=== PATIENT | male | born 2000 | race African-American/Black ===

== ENCOUNTER 2018-03-05 08:32 | Inpatient (IN) | payer OTHER ==
[~2018-03-05] VITALS: Ht 185.4 cm; Wt 93.9 kg
--- NOTE | 2018-03-05 08:46 | ER Report ---
History and Physical Time Seen By MD: 08:46 HPI/ROS 17-year-old otherwise healthy male with a remote history of cna hha asthma presents to the emergency department with cough, chills, and myalgias for the past 2 days. Worsened last night such that he had problems sleeping. He has not taken any medication recently for the symptoms. Complained of night sweats last night. He is a healthy faculty head otherwise. He denies chest pain, abdominal pain, nausea vomiting or diarrhea. No PE risk factors. Denies sick contacts. Remainder of the 14 system rev: Yes Allergies: Uncoded Allergies: PEACHES (Allergy, Severe, HIVES, 03/05/18) Home Meds No Active Prescriptions or Reported Meds Reviewed Nurses Notes: Yes Old Medical Records Reviewed: Yes Hx Smoking: No Exposure to Second Hand Smoke?: No Hx Substance Use Disorder: No Hx Alcohol Use: No Constitutional Vital Sign - Last 24 Hours 03/05/18 03/05/18 03/05/18 03/05/18 08:35 08:37 08:58 08:58 Temp 98.2 Pulse 138 116 Resp 18 18 B/P (MAP) 156/92 (113) 156/92 Pulse Ox 89 88 O2 Delivery Room Air Room Air 03/05/18 03/05/18 03/05/18 03/05/18 09:00 09:02 09:03 09:30 Pulse 119 133 Resp 14 18 B/P (MAP) 135/86 (102) 135/76 (95) Pulse Ox 92 O2 Delivery Room Air 03/05/18 03/05/18 03/05/18 03/05/18 09:32 09:37 10:00 10:07 Pulse 121 116 107 Resp 12 32 17 B/P (MAP) 130/64 (86) Pulse Ox 88 85 93 O2 Delivery Room Air Room Air Nasal Cannula O2 Flow Rate 2 03/05/18 03/05/18 03/05/18 03/05/18 10:30 10:37 11:00 11:07 Pulse 106 116 Resp 28 21 B/P (MAP) 134/85 (101) 128/77 (94) Pulse Ox 93 93 O2 Delivery Nasal Cannula Nasal Cannula O2 Flow Rate 2 2 03/05/18 03/05/18 03/05/18 03/05/18 11:12 11:30 11:42 11:47 Pulse 101 101 102 Resp 22 23 23 B/P (MAP) 118/72 (87) Pulse Ox 94 89 87 O2 Delivery Nasal Cannula Room Air Room Air O2 Flow Rate 2 03/05/18 12:00 B/P (MAP) 132/89 (103) Physical Exam General Appearance: The patient is alert, has no immediate need for airway protection and no current signs of toxicity. Eyes: Pupils equal and round no injection. Respiratory: Chest is non tender, no wheezing but with decreased breath sounds in the left base Cardiac: tachycardic with regular rhythm Gastrointestinal: Abdomen is soft and non tender, no masses, bowel sounds normal. Neck: Neck is supple and non tender. Extremities have full range of motion and are non tender. Skin: No rashes or lesions. DIFFERENTIAL DIAGNOSIS: After history and physical exam differential diagnosis was considered for shortness of breath including but not limited to pulmonary infectious process, COPD, asthma, pulmonary embolus and congestive heart failure. Medical Decision Making Data Points Result Diagram: 03/05/18 0842 03/05/18 0842 Laboratory Hematology Test 03/05/18 08:42 03/05/18 08:52 Red Blood Count 5.58 M/uL (4.00-5.60) Mean Corpuscular Volume 89.7 fL (80.0-96.0) Mean Corpuscular Hemoglobin 31.1 pg (26.0-33.0) Mean Corpuscular Hemoglobin Concent 34.7 g/dL (32.0-36.0) Red Cell Distribution Width 12.4 % (11.5-14.5) Mean Platelet Volume 7.2 fL (7.2-11.1) Neutrophils (%) (Auto) 83.4 % (39.4-72.5) Lymphocytes (%) (Auto) 8.4 % (17.6-49.6) Monocytes (%) (Auto) 8.0 % (4.1-12.4) Eosinophils (%) (Auto) 0.1 % (0.4-6.7) Basophils (%) (Auto) 0.1 % (0.3-1.4) Nucleated RBC Relative Count (auto) 0.1 /100WBC Neutrophils # (Auto) 19.7 K/uL (2.0-7.4) Lymphocytes # (Auto) 2.0 K/uL (1.3-3.6) Monocytes # (Auto) 1.9 K/uL (0.3-1.0) Eosinophils # (Auto) 0.0 K/uL (0.0-0.5) Basophils # (Auto) 0.0 K/uL (0.0-0.1) Nucleated RBC Absolute Count (auto) 0.01 K/uL Peripheral Blood Smear Yes Y/N Sodium Level 137 mmol/L (137-145) Potassium Level 4.1 mmol/L (3.5-5.0) Chloride Level 104 mmol/L (98-107) Carbon Dioxide Level 26 mmol/L (22-30) Blood Urea Nitrogen 12 mg/dl (9-21) Creatinine 1.30 mg/dl (0.66-1.25) Glomerular Filtration Rate Calc > 60.0 Random Glucose 106 mg/dl (75-110) Calcium Level 10.2 mg/dl (8.4-10.2) Total Bilirubin 1.2 mg/dl (0.2-1.3) Aspartate Amino Transf (AST/SGOT) 25 U/L (0-35) Alanine Aminotransferase (ALT/SGPT) 32 U/L (0-56) Alkaline Phosphatase 102 U/L (0-126) Total Protein 9.0 g/dl (6.3-8.2) Albumin 4.6 g/dl (3.5-5.0) Influenza Virus Type A (PCR) Negative (NEGATIVE) Influenza Virus Type B (PCR) Negative (NEGATIVE) Chemistry Test 03/05/18 08:42 03/05/18 08:52 White Blood Count 23.6 k/uL (4.5-11.0) Red Blood Count 5.58 M/uL (4.00-5.60) Hemoglobin 17.4 g/dL (14.0-18.0) Hematocrit 50.1 % (42.0-52.0) Mean Corpuscular Volume 89.7 fL (80.0-96.0) Mean Corpuscular Hemoglobin 31.1 pg (26.0-33.0) Mean Corpuscular Hemoglobin Concent 34.7 g/dL (32.0-36.0) Red Cell Distribution Width 12.4 % (11.5-14.5) Platelet Count 320 K/uL (150-450) Mean Platelet Volume 7.2 fL (7.2-11.1) Neutrophils (%) (Auto) 83.4 % (39.4-72.5) Lymphocytes (%) (Auto) 8.4 % (17.6-49.6) Monocytes (%) (Auto) 8.0 % (4.1-12.4) Eosinophils (%) (Auto) 0.1 % (0.4-6.7) Basophils (%) (Auto) 0.1 % (0.3-1.4) Nucleated RBC Relative Count (auto) 0.1 /100WBC Neutrophils # (Auto) 19.7 K/uL (2.0-7.4) Lymphocytes # (Auto) 2.0 K/uL (1.3-3.6) Monocytes # (Auto) 1.9 K/uL (0.3-1.0) Eosinophils # (Auto) 0.0 K/uL (0.0-0.5) Basophils # (Auto) 0.0 K/uL (0.0-0.1) Nucleated RBC Absolute Count (auto) 0.01 K/uL Peripheral Blood Smear Yes Y/N Glomerular Filtration Rate Calc > 60.0 Calcium Level 10.2 mg/dl (8.4-10.2) Total Bilirubin 1.2 mg/dl (0.2-1.3) Aspartate Amino Transf (AST/SGOT) 25 U/L (0-35) Alanine Aminotransferase (ALT/SGPT) 32 U/L (0-56) Alkaline Phosphatase 102 U/L (0-126) Total Protein 9.0 g/dl (6.3-8.2) Albumin 4.6 g/dl (3.5-5.0) Influenza Virus Type A (PCR) Negative (NEGATIVE) Influenza Virus Type B (PCR) Negative (NEGATIVE) EKG/Imaging EKG Interpretation 12 lead EKG: Rhythm: sinus tachycardia [place]: normal QRS: normal ST segments: normal [ ] Monitor Interpretation: Sinus Tachycardia ED Course/Re-evaluation ED Course Very pleasant 17-year-old male who presents to the emergency department with diaphoresis, cough, chills, and hypoxia. No PE risk factors. No chest pain. Night sweats last night. HR up to 140 initially. AFter 2L of NS, HR in low 100s. Also given a duoneb. CXR c/w left lower lobe pna. Given Rocephin and Azithromycin. Feels somewhat improved after treatment, but still with tachycardia and oxygen requirement. Influenza negative. Will admit for continued IV abx and oxygen support. Decision to Disposition Date: Mar 05, 2018 Decision to Disposition Time: 12:39 Depart Departure Latest Vital Signs Vital Signs Date Time Temp Pulse Resp B/P (MAP) Pulse Ox O2 Delivery O2 Flow Rate FiO2 03/05/18 12:00 132/89 (103) 03/05/18 11:47 102 23 87 Room Air 03/05/18 11:12 2 03/05/18 08:37 98.2 Impression: Primary Impression: Community acquired pneumonia Condition: Improved Disposition: Admitted from ER New Scripts No Active Prescriptions or Reported Meds Problem Qualifiers Primary Impression: Community acquired pneumonia Laterality: left Lung location: lower lobe of lung Qualified Codes: J18.1 - Lobar pneumonia, unspecified organism NICOLA MA MD Mar 05, 2018 08:46
[2018-03-05] MEDS ORDERED: ALBUTEROL/IPRATROPIUM 3 ML NEB NEB ONE (08:50)
[2018-03-05] MEDS ORDERED: NS(*) 0.9% 1000 ML BAG 1,000 ML IV ONE ×3 (08:50→10:00)
[2018-03-05] MEDS ORDERED: KETOROLAC 30 MG/ML VIAL IVP ONE (08:50)
[2018-03-05] MEDS ORDERED: DEXAMETHASONE SOD PHOS 10MG/ML IVP ONE (08:50)
[2018-03-05 09:02] LABS: PLATELET COUNT, AUTOMATED 320 K/uL (150-450)
--- NOTE | 2018-03-05 09:18 | EKG ---
FACILITY: [facility] [place] PATIENT NAME: LLOYD PURCELL : [id number] MR: [id number] V: [id number] EXAM DATE: ORDERING PHYSICIAN: NICOLA MA TECHNOLOGIST: Test Reason : SOB Blood Pressure : / mmHG Vent. Rate : 124 BPM Atrial Rate : 124 BPM P-R Int : 136 ms QRS Dur : 096 ms QT Int : 322 ms P-R-T Axes : 082 090 046 degrees QTc Int : 462 ms Sinus tachycardia Right atrial enlargement Borderline ECG No previous ECGs available Confirmed by SINDY ARREGUIN ([id number]) on 03/05/2018 11:32:43 AM Referred By: Confirmed By:SINDY ARREGUIN
--- NOTE | 2018-03-05 09:45 | RADIOLOGY IMAGING REPORT ---
[place] [facility] [place]IENT NAME: Dhaval Sanchez : 2000 MR: [id number] V: [id number] EXAM DATE: ORDERING PHYSICIAN: NICOLA MA TECHNOLOGIST: Location: [facility] Patient: Dhaval Sanchez : 2000 Visit/Account:[id number] Date of Sevice: 03/05/2018 CHEST PA LAT INDICATION: fever/cough/wheezing COMPARISON: None available FINDINGS: Heart size within normal limits. There is focal infiltrate noted within the posterior aspect of the left lower lobe. There is no pneumothorax or pleural effusion. IMPRESSION: 1. Left lower lobe pneumonia Report Dictated By: Tyrone Miller at 03/05/2018 9:40 AM Report E-Signed By: Tyrone Miller at 03/05/2018 9:41 AM WSN:[id number]
[2018-03-05] MEDS ORDERED: cefTRIAXone 1 GM VIAL IVP ONE (10:00)
[2018-03-05] MEDS ORDERED: AZITHROMYCIN(*) 500 MG 500 MG in NS(*) 0.9% 250 ML BAG 250 ML IVPB ONE (10:00)
[2018-03-05] MEDS ORDERED: NS(*) 0.9% 1000 ML BAG 1,000 ML IV PRN (13:27)
[2018-03-05] MEDS ORDERED: ALBUTEROL 8 GM INHALER INH PRN (13:30)
[2018-03-05] MEDS ORDERED: ACETAMINOPHEN 500 MG TAB PO PRN (13:30)
[2018-03-05] MEDS ORDERED: methylPREDNIS SUCC 125 MG/2ML IVP ONE (13:30)
[2018-03-05 13:47] VITALS: BP 132/82
--- NOTE | 2018-03-05 14:01 | History & Physical ---
History of Present Illness Chief Complaint Cough History of Present Illness This patient presented to the emergency room complaining of cough, fever, and chills over the last 24hrs. He returned to [place] yesterday after going back to [place] for winter break. He denies any sick contacts. History Problems: (1) Asthma Home Meds No Active Prescriptions or Reported Meds Allergies: Uncoded Allergies: PEACHES (Allergy, Severe, HIVES, 03/05/18) Patient History: FHx: diabetes mellitus MOTHER Hx Smoking: No Exposure to Second Hand Smoke?: No Hx Alcohol Use: No Review of Systems All Systems Reviewed/Normal: Yes, Except as Noted Constitutional: Fever, Chills Respiratory: Cough Exam Vital Signs Vital Signs Date Time Temp Pulse Resp B/P (MAP) Pulse Ox O2 Delivery O2 Flow Rate FiO2 03/05/18 13:47 98.1 105 12 132/82 (99) 92 Nasal Cannula 2.0 Neuro: No Gross deficits Eyes: PERRLA Cardiovascular: Regular Rate and Rhythm Respiratory: Clear to Auscultation GI: Abd Soft and Non-Tender Extremities: No Edema Integumentary: No Cyanosis Medical Decision Making Data Points Result Diagram: 03/05/18 0842 03/05/18 0842 Assessment and Plan Problems: (1) Bacterial pneumonia Assessment & Plan: He did present with fever and cough. His chest x-ray shows a left lower lobe infiltrate. He received a dose of ceftriaxone and azithromycin in the emergency department. We have converted him to oral treatment with Omnicef and azithromycin. He is hypoxic and we will be trying to wean his oxygen. (2) Asthma Assessment & Plan: He does have a history of asthma. We gave him a dose of Solu Medrol to help prevent an exacerbation. Venous Thromboembolism Antithrombotics Is Pt On Any Antithrombotics?: No Exam Sepsis Risk: No Definite Risk SINDY ARREGUIN DO Mar 05, 2018 14:01
[2018-03-05 19:24] VITALS: BP 138/64
[2018-03-06 02:56] VITALS: BP 143/61
[2018-03-06 06:37] LABS: PLATELET COUNT, AUTOMATED 288 K/uL (150-450)
[2018-03-06 07:32] VITALS: BP 136/81
[2018-03-06] MEDS ORDERED: AZITHROMYCIN 250 MG TAB PO SCH (09:00)
[2018-03-06] MEDS ORDERED: CEFDINIR 300 MG CAP PO SCH (09:00)
[2018-03-06] MEDS ORDERED: CEF300 PO (09:56)
[2018-03-06] MEDS ORDERED: ALB18R INH (09:56)
[2018-03-06] MEDS ORDERED: AZIT-18 PO (09:56)
--- NOTE | 2018-03-06 10:03 | Hospitalist Depart ---
Discharge Summary Reason for Hosp/Final Diag: (1) Bacterial pneumonia Hospital Course & Plan: He did present with fever and cough. His chest x-ray shows a left lower lobe infiltrate. He received a dose of ceftriaxone and azithromycin in the emergency department. We have converted him to oral treatment with Omnicef and azithromycin. He continues to require oxygen, however, patient would like to go home with oxygen. He reports much improvement in symptoms. He will be following up with Dr. Ernst physician. (2) Asthma Hospital Course & Plan: He does have a history of asthma. We gave him a dose of Solu Medrol to help prevent an exacerbation. Departure Latest Vital Signs Vital Signs 03/06/18 03/06/18 07:32 08:46 Temp 98.0 Pulse 107 Resp 16 B/P (MAP) 136/81 (99) Pulse Ox 87 O2 Delivery Nasal Cannula O2 Flow Rate 3.0 Weight (Pounds): 207 Result Diagram: 03/06/1836 03/06/18535 Condition: Improved Discharge: Home, Self Care Discharge Instructions Home Meds Active Scripts Cefdinir 300 Mg Cap (OMNICEF 300 MG CAP (OR EQUIV)) 300 Mg Cap, 300 MG PO BID for 6 Days, #12 CAP Prov:MARIE PINON 03/06/18 Azithromycin 250 Mg Tab (AZITHROMYCIN 250 MG TAB) 250 Mg Tablet, 250 MG PO QDAY, #3 TAB Prov:MARIE PINON 03/06/18 Albuterol Sulfate (VENTOLIN HFA) 18 Gm Inh, 2 PUFF INH Q4H PRN for SHORTNESS OF BREATH, #1 INH Prov:MARIE PINON 03/06/18 Diet: Regular Activity: As Tolerated Special Instructions: Please take antibiotics as prescribed until finished. Follow up with Dr. Ernst. Wear oxygen at all times. Use albuterol inhaler for SOB. Copies to: ZORA ERNST DO ; Venous Thromboembolism Antithrombotics Is Pt On Any Antithrombotics?: No MARIE PINON Mar 06, 2018 10:03
[2018-03-07] MEDS ORDERED: INFLUENZA VIRUS VAC 0.5ML SYR IM ONLY ONE (09:00)
== END 2018-03-06 10:48 | disposition home or self-care (01) | DRG 195 ==
LOC: ER 08:48 → MED 12:30
PROVIDERS: ADMIT Family Medicine; ATTEND Family Medicine
DX: J15.9 Unspecified bacterial pneumonia (principal); J45.909 Unspecified asthma, uncomplicated; R00.0 Tachycardia, unspecified; Z91.018 Allergy to other foods
CPT/HCPCS: 36415; 71046; 82040; 82247; 82310; 82374; 82435; 82565; 82947; 84075; 84132; 84155; 84295; 84450; 84460; 84520; 85025; 87502; 93005; 94640; 96361; 96365; 96375; 99285; J0456; J0696; J1100; J1885; J2930; J3535; J7030; J7050

== ENCOUNTER → 2018-03-30 | Outpatient (CLI) | payer OTHER ==
[~2018-03-30] MED LIST: ALB18R INH; AZIT-18 PO; CEF300 PO
--- NOTE | 2018-03-30 15:28 | RADIOLOGY IMAGING REPORT ---
[place] [facility] [place] Dhaval Sanchez : 2000 MR: [id number] V: [id number] EXAM DATE: ORDERING PHYSICIAN: ZORA ERNST TECHNOLOGIST: Location: [facility] Patient: Dhaval Sanchez : 2000 Visit/Account:[id number] Date of Sevice: 03/30/2018 Exam type: CHEST PA LAT History: Pneumonia one month ago, nonsmoker, asthma Comparison: February 25, 2018. Findings: When compared the prior study the the by basilar infiltrates have resolved. No evidence of acute nelda earing infiltrates at this time. No evidence of pleural effusions or pneumothorax. The cardiac silh ouette is normal in size. IMPRESSION: 1. There has been interval clearing of the bibasilar infiltrates when compared the prior study Report Dictated By: Francisca Arredondo MD at 03/30/2018 3:21 PM Report E-Signed By: Francisca Arredondo MD at 03/30/2018 3:22 PM WSN:[id number]
== END ==
LOC: RAD 12:01
PROVIDERS: ATTEND Emergency Medicine Sports Medicine
DX: Z87.01 Personal history of pneumonia (recurrent) (principal)
CPT/HCPCS: 71046